=== PATIENT | male | born 1995 | race African-American/Black ===

== ENCOUNTER 2016-12-06 15:25 | Emergency (ER) | payer OTHER ==
[~2016-12-06] VITALS: Ht 180.3 cm; Wt 86.2 kg
[2016-12-06] MEDS ORDERED: CYCL7.5T27 PO (16:12)
[2016-12-06] MEDS ORDERED: IBUP100T9 PO (16:12)
[2016-12-06] MEDS ORDERED: diphenhydrAMINE 50 MG/ML INJ (BENADRYL) IVP ONE (16:15)
[2016-12-06] MEDS ORDERED: KETOROLAC 30 MG/ML VIAL IVP ONE (16:15)
[2016-12-06] MEDS ORDERED: NS IV 1000 ML 1,000 ML IV SCH (16:15)
[2016-12-06] MEDS ORDERED: PROCHLORPERAZINE 10 MG/2ML INJ (COMPAZINE) IV ONE (16:15)
[2016-12-06 16:19] LABS: BASOPHILS % (AUTO) 1 % (0-10); EOSINOPHILS % (AUTO) 1 % (0-10); LYMPHOCYTES # (AUTO) 1.1 X 10^3 (1.0-4.0); LYMPHOCYTES % (AUTO) 21 % (12-44); MEAN CORPUSCULAR HEMOGLOBIN 29 PG (25-34); MEAN CORPUSCULAR HGB CONC 33 G/DL (32-36); MEAN CORPUSCULAR VOLUME 88 FL (80-99); MEAN PLATELET VOLUME 9.9 FL (7.4-10.4); MONOCYTES # (AUTO) 0.5 X 10^3 (0.0-1.0); MONOCYTES % (AUTO) 9 % (0-12); NEUTROPHILS # (AUTO) 3.5 X 10^3 (1.8-7.8); NEUTROPHILS % (AUTO) 68 % (42-75); PLATELET COUNT 240 10^3/uL (130-400); RED BLOOD COUNT 4.93 10^6/uL (4.35-5.85); RED CELL DISTRIBUTION WIDTH 11.9 % (10.0-14.5); WHITE BLOOD COUNT 5.2 10^3/uL (4.3-11.0)
--- NOTE | 2016-12-06 16:21 | ED Headache ---
General Chief Complaint: Head/Cervical Problems Stated Complaint: HEADACHE Nursing Triage Note: C/O OF H/A FOR ABOUT A WEEK. STATES WORSE WHEN HE'S BENDING DOWN. WORSEN AFTER RUNNING THIS MORING. TOOK IBUPROFEN ET IT HELPED FOR A BIT. NO HISTORY OF MIGRAINS.NO VISION CHANGE. H/A IS GENERALIZED. FEELS NAUSIATED W/H/A. Nursing Sepsis Screen: No Definite Risk Source: patient Exam Limitations: no limitations History of Present Illness Time seen by provider: 16:19 Initial Comments Sent to ER from [facility] with reports of a headache. Patient reports to me that the headache is been going on for about one week. It initially started in the left temporal region and over the course of the past week has spread to become a global headache. He did have fevers found incidentally on one of his visits at the [facility]. Temperature maximum was 100.9. He states that he did have some stiffness and pain in his neck and that flexing his chin to his chest did worsen the pain but currently does not worsen the pain. He denies any runny nose, sore throat, cough. 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 Currently rates his pain a 9 out of 10. Headache was gradual onset. Timing/Duration: 1 week Severity/Quality: constant Associated Symptoms: No confusion, fever/chills, nausea/vomiting, stiff neck Allergies and Home Medications Allergies Coded Allergies: No Known Drug Allergies (Unverified , 04/12/16) Home Medications Cyclobenzaprine HCl 7.5 Mg Tablet, 7.5 MG PO PRN, (Reported) Ibuprofen 100 Mg Tablet, 100 MG PO PRN, (Reported) Constitutional: see HPI, fever Eyes: No Symptoms Reported Ears, Nose, Mouth, Throat: no symptoms reported Respiratory: no symptoms reported, No cough Cardiovascular: no symptoms reported Genitourinary: no symptoms reported Musculoskeletal: no symptoms reported Skin: no symptoms reported Psychiatric/Neurological: No Symptoms Reported Past Kmztxbt-Pvsapt-Emsczl Hx Patient Social History Alcohol Use: Denies Use Recreational Drug Use: No Smoking Status: Never a Smoker Recent Foreign Travel: No Contact w/Someone Who Travel: No Recent Infectious Disease Expo: No Recent Hopitalizations: No Immunizations Up To Date PED Vaccines UTD: No Seasonal Allergies Seasonal Allergies: No Surgeries HX Surgeries: No Respiratory Hx Respiratory Disorders: Yes Respiratory Disorders: Asthma Cardiovascular Hx Cardiac Disorders: No Neurological Hx Neurological Disorders: No Reproductive System Hx Reproductive Disorders: No Sexually Transmitted Disease: No HIV/AIDS: No Genitourinary Hx Genitourinary Disorders: No Gastrointestinal Hx Gastrointestinal Disorders: No Musculoskeletal Hx Musculoskeletal Disorders: No Endocrine Hx Endocrine Disorders: No HEENT HX ENT Disorders: No Cancer Hx Cancer: No Psychosocial Hx Psychiatric Problems: No Integumentary HX Skin/Integumentary Disorder: No Blood Transfusions Hx Blood Disorders: No Adverse Reaction to a Blood Tr: No Family Medical History Significant Family History: No Pertinent Family Hx Physical Exam Vital Signs Vital Sign - Last 12Hours 12/06/16 15:53 Temp 98.5 Pulse 73 Resp 18 B/P (MAP) 126/69 O2 Delivery Room Air Capillary Refill : Less Than 3 Seconds General Appearance: WD/WN, no apparent distress HEENT: PERRL/EOMI, normal ENT inspection Neck: non-tender, full range of motion Respiratory: no respiratory distress, no accessory muscle use Gastrointestinal: normal bowel sounds, non tender, soft Extremities: normal range of motion, non-tender Psychiatric: alert, oriented x 3 Crainal Nerves: normal hearing, normal speech, PERRL Progress/Results/Core Measures Results/Orders Lab Results Laboratory Tests Test 12/06/16 16:10 Range/Units White Blood Count 5.2 4.3-11.0 10^3/uL Red Blood Count 4.93 4.35-5.85 10^6/uL Hemoglobin 14.4 13.3-17.7 G/DL Hematocrit 43 40-54 % Mean Corpuscular Volume 88 80-99 FL Mean Corpuscular Hemoglobin 29 25-34 PG Mean Corpuscular Hemoglobin Concent 33 32-36 G/DL Red Cell Distribution Width 11.9 10.0-14.5 % Platelet Count 240 130-400 10^3/uL Mean Platelet Volume 9.9 7.4-10.4 FL Neutrophils (%) (Auto) 68 42-75 % Lymphocytes (%) (Auto) 21 12-44 % Monocytes (%) (Auto) 9 0-12 % Eosinophils (%) (Auto) 1 0-10 % Basophils (%) (Auto) 1 0-10 % Neutrophils # (Auto) 3.5 1.8-7.8 X 10^3 Lymphocytes # (Auto) 1.1 1.0-4.0 X 10^3 Monocytes # (Auto) 0.5 0.0-1.0 X 10^3 Eosinophils # (Auto) 0.0 0.0-0.3 10^3/uL Basophils # (Auto) 0.0 0.0-0.1 10^3/uL C-Reactive Protein High Sensitivity 1.05 H 0.00-0.50 MG/DL My Orders Orders - HARJIT BATES APRN Cbc With Automated Diff (12/06/16 16:01) Ct Head Wo (12/06/16 16:01) Hs C Reactive Protein (12/06/16 16:01) Saline Lock/Iv-Start (12/06/16 16:12) Ketorolac Injection (Toradol Injection) (12/06/16 16:15) Diphenhydramine Injection (Benadryl Inje (12/06/16 16:15) Ns Iv 1000 Ml (Sodium Chloride 0.9%) (12/06/16 16:15) Prochlorperazine Injection (Compazine In (12/06/16 16:15) Saline Lock/Iv-Start (12/06/16 16:13) Csf Cell Count (12/06/16 16:41) Csf Glucose (12/06/16 16:41) Csf Total Protein (12/06/16 16:41) Csf Culture (12/06/16 16:41) Virus Culture (12/06/16 16:41) Medications Given in ED Current Medications Medications Dose Ordered Sig/Kylah Route Start Time Stop Time Status Last Admin Dose Admin Diphenhydramine HCl 12.5 mg ONCE ONCE IVP 12/06/16 16:15 12/06/16 16:16 DC 12/06/16 16:52 12.5 MG Ketorolac Tromethamine 30 mg ONCE ONCE IVP 12/06/16 16:15 12/06/16 16:16 DC 12/06/16 16:54 30 MG Prochlorperazine Edisylate 5 mg ONCE ONCE IV 12/06/16 16:15 12/06/16 16:16 DC 12/06/16 16:56 5 MG Vital Signs/I&O Vital Sign - Last 12Hours 12/06/16 15:53 Temp 98.5 Pulse 73 Resp 18 B/P (MAP) 126/69 O2 Delivery Room Air Blood Pressure Mean: 88 Departure Communication Progress Notes 1701-I did discuss with the patient. I would recommend an LP to evaluate for SAH or infectious causes given no history of this headache and he agrees 1807-Pts headache is gone, does not want LP. Will dc to home with Impression Impression: Primary Impression: Headache Qualified Codes: R51 - Headache Disposition: HOME, SELF-CARE Condition: Stable Departure-Patient Inst. Referrals: [facility] (PCP/Family) Primary Care Physician HARJIT BATES APRN Dec 06, 2016 16:21
--- NOTE | 2016-12-06 16:52 | Diagnostic Imaging Report ---
PROCEDURE: CT head without contrast. TECHNIQUE: Multiple contiguous axial images were obtained through the brain without the use of intravenous contrast. INDICATION: Headache x10 days. FINDINGS: The ventricles are normal in size, shape, and position. There are no masses or hemorrhages. There are no extra-axial fluid collections. IMPRESSION: Negative CT head. Dictated by: Dictated on workstation # [id number]
[2016-12-06 18:20] VITALS: BP 118/70
== END 2016-12-06 18:20 | disposition home or self-care (01) ==
LOC: EDUNIT# 15:25 → ER 15:27
DX: R51 Headache (principal)
CPT/HCPCS: 36415; 70450; 85025; 86141; 96374; 96375